=== PATIENT | male | born 2000 | race African-American/Black ===

== ENCOUNTER 2022-08-08 14:00 | Emergency (ER) | payer OTHER ==
[2022-08-08] MEDS ORDERED: KETOROLAC TROMETHAMINE 10 MG TABLET PO ONE (14:26)
[2022-08-08 14:39] VITALS: BP 102/64; PULSE 90; RESP 16; TEMP 98.8; BMI 26.4
== END 2022-08-08 16:20 | disposition home or self-care (01) ==
LOC: FER 14:00
DX: M25.561 Pain in right knee (principal)
CPT/HCPCS: 73560-TC-RT-FY; 99283-25